=== PATIENT | female | born 1995 | race American Indian/Alaskan Native ===

== ENCOUNTER 2018-01-07 08:57 | Inpatient (IN) | payer OTHER, MEDICAID ==
--- NOTE | 2018-01-06 17:42 | History and Physical Report ---
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 no EDC Calculations LMP: 01/14/2018 EDC Confirmation: 01/14/2018 Past History : 3 Term Births: 1 Premature Births: 0 Living Children: 1 Para: 1 Prev : 1 Aborta: 1 Spont. 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 of genital herpes: yes Partner hx. of genital herpes: no Rash, Viral, or Febrile illness since last LMP? no Varicella/Chicken Pox Status: Immunized Genetic History Congenital Heart Defect: Mom: no Dad: no Alejandra Disease: Mom: no Dad: no Thalassemia Mom: no Dad: no Neural Tube Defect Mom: no Dad: no Down's Syndrome Mom: no Dad: no Clay-Sachs Mom: no Dad: no Sickle Cell Disease/Trait Mom: no Dad: no Hemophilia Mom: no Dad: no Muscular Dystrophy Mom: no Dad: no Cystic Fibrosis Mom: no Dad: no Lb Chorea Mom: no Dad: no Mental Retardation Mom: no Dad: no Fragile X Mom: no Dad: no Other Genetic/Chromosomal Disorder Mom: no Dad: no Child w/other defect Mom: no Dad: no Enviromental Exposures Xray Exposure: no Medication, drug, or alcohol use since LMP: no Chemical/Other Exposure: no Exposure to Cat Liter: no Hx of Parvovirus (Fifth Disease): no Occupational Exposure to Children: none Current Allergies (reviewed today): No known allergies Past History Past Medical History: other (See HPI) Past Surgical History: other (See HPI) 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) Family/Genetic History: other (See HPI) Social history: other (See HPI) - Obstetrical History Expected Date of Delivery: 01/14/18 Actual Gestation: 39 Week(s) 0 Day(s) : 3 Hx # Term Pregnancies: 1 Number of Pregnancies: 0 Spontaneous Abortions: 1 Induced : 0 Number of Living Children: 1 Medications and Allergies Allergies Allergy/AdvReac Type Severity Reaction Status Date / Time No Known Allergies Allergy Verified 01/07/18 09:19 - Physical Exam Breasts: Positive: deferred Cardiovascular: Regular rate Lungs: Positive: Normal air movement Abdomen: Positive: normal appearance, normal bowel sounds Genitourinary (Female): Positive: normal external genitalia Results All other labs normal. Assessment and Plan - Patient Problems (1) Maternal care due to low transverse uterine scar from previous delivery Current Visit: No Status: Acute Plan to address problem: Discuss the risks of the surgery including infection, bleeding possibly heavy enough to require a blood transfusion, possible damage to bowel, bladder or ureter. Her questions were answered. Patient understands and desires to proceed (2) with 39 completed weeks gestation Current Visit: No Status: Acute (3) Herpes, genital Current Visit: No Status: Chronic Qualifiers: Herpes simplex infection site: unspecified Qualified Code(s): A60.00 - Herpesviral infection of urogenital system, unspecified
[~2018-01-07 08:57] MED LIST: ANCEF/STERILE WATER 2 GM/20 ML 2 GM/20 ML SYRINGE IV NR; BICITRA PO SCH; LACTATED RINGERS 1,000 ML IV SCH; PEPCID IV SCH; PITOCin/NS 20 UNIT/1000ML DRIP 20 UNITS/1,000 ML BAG IV SCH; REGLAN IV SCH
[2018-01-07] MEDS ORDERED: ZOFRAN IV PRN (10:38)
[2018-01-07] MEDS ORDERED: PHENERGAN PO PRN (10:38)
[2018-01-07] MEDS ORDERED: NARCAN 0.4 MG/1 ML IV PRN (10:38)
[2018-01-07] MEDS ORDERED: DILAUDID IV PRN (10:38)
[2018-01-07] MEDS ORDERED: PHENERGAN PR PRN ×2 (10:38→19:48)
[2018-01-07] MEDS ORDERED: BENADRYL IV PRN (10:38)
--- NOTE | 2018-01-07 10:38 | Anesthesia Day of Surgery ---
Anesthesia Day of Surgery - Day of Surgery Patient Examined: Yes Patient H&P Reviewed: Yes Patient is NPO: Yes
--- NOTE | 2018-01-07 10:38 | Anesthesia Consultation ---
Anesthesia Consult and Med Hx Date of service: 01/07/18 - Airway Anesthetic Teeth Evaluation: Good ROM Head & Neck: Adequate Mental/Hyoid Distance: Adequate Mallampati Class: Class II Intubation Access Assessment: Probably Good - Pre-Operative Health Status ASA Pre-Surgery Classification: ASA2 Proposed Anesthetic Plan: Epidural, Spinal - Pulmonary Hx Asthma: No - Cardiovascular System Hx Hypertension: No - Central Nervous System Hx Seizures: Yes (x1 as a child) Hx Psychiatric Problems: No - Endocrine Hx Renal Disease: No Hx Hypothyroidism: No Hx Hyperthyroidism: No - Hematic Hx Anemia: No Hx Sickle Cell Disease: No - Other Systems Hx Alcohol Use: No
[2018-01-07] MEDS ORDERED: TORADOL IV PRN (10:39)
[2018-01-07 10:46] LABS: Basophils % (Auto) 0.3 % (0.0-1.8); Eosinophils # (Auto) 0.1 K/mm3 (0.0-0.4); Eosinophils % (Auto) 0.5 % (0.0-4.3); Hematocrit 33.5 % (30.3-42.9); Hemoglobin 11.1 gm/dl (10.1-14.3); Lymphocytes # (Auto) 2.7 K/mm3 (1.2-5.4); Lymphocytes % (Auto) 23.7 % (13.4-35.0); Mean Corpuscular HGB Conc 33 % (30-34); Mean Corpuscular Hemoglobin 29 pg (28-32); Mean Corpuscular Volume 87 fl (79-97); Monocytes # (Auto) 1.1 K/mm3 (0.0-0.8); Monocytes % (Auto) 9.4 % (0.0-7.3); Platelet Count 200 K/mm3 (140-440); Red Blood Count 3.85 M/mm3 (3.65-5.03)
[2018-01-07] MEDS ORDERED: SODIUM CHLORIDE FLUSH SYRINGE 10 ML IV SCH (11:00)
[2018-01-07] MEDS ORDERED: NACL 0.9% IR ONE (11:54)
[2018-01-07] MEDS ORDERED: WATER FOR IRRIG STERILE IR ONE (11:54)
[2018-01-07] MEDS ORDERED: NEO SYNEPHRINE/NS Syringe(OR USE) IV ONE (12:17)
[2018-01-07] MEDS ORDERED: ZOFRAN ONE (12:17)
[2018-01-07] MEDS ORDERED: ASTRAMORPH PF 10MG/10ML ONE (12:21)
--- NOTE | 2018-01-07 12:37 | Operative Report ---
Operative Report Operative Report: Date of procedure: 01/07/2018 Pre-operative diagnosis: Intrauterine at 39 weeks with previous section Post-operative diagnosis: Same Procedure name(s): Repeat low transverse section Surgeon: Pascual Diaz MD Director Stars: Shauna Dominguez CST Anesthesia: Spinal EBL: 600 Complications: None Findings: Normal uterus with thin lower uterine segment normal tubes and ovaries bilaterally. Female infant weight 6 lbs. 12 oz. Apgars 8 at 1 minute and 9 at 5 minutes Specimen(s): None Procedure: The patient was brought to the operating room. A spinal was placed without any complications. She was then placed in left lateral tilt. Prepped and draped in the usual sterile manner. After testing for adequate anesthesia level, a Pfannenstiel incision was made through her previous scar. This incision was taken down to the fascia. The fascia was then nicked in the midline. This incision was extended out laterally with Ramirez scissors. The fascia was then sharply and bluntly from the underlying rectus muscles. The rectus muscles were bluntly and sharply . The peritoneum was then entered with the steam hoist operator's fingers. This incision was spread vertically with care not to damage the bladder below. The bladder flap was then formed sharply and bluntly with Metzenbaum scissors. The Denis self- retaining tractor was then placed without any difficulty. A transverse incision was made in lower uterine segment. This incision was extended laterally with the operators fingers. The amniotic sac was then entered bluntly with the steam hoist operator's fingers. The infant was delivered from the vertex position. Bulb suction on the mother's abdomen. Cord was double clamped and cut. The was then passed to the nursery personnel who were in attendance. The above scores were given by the nursery personnel. The placenta was then bluntly removed. The uterus was then externalized and wiped clean the remaining products. The uterine incision was closed in layers. The first incision was closed in a locking manner using 0 Vicryl. This was followed by imbricating stitch also with 0 Vicryl. This closure was hemostatic. The bladder flap was copiously irrigated and found to be hemostatic. The pelvis was copiously irrigated and found to be hemostatic. The uterus was then placed back to the patient's abdomen. The retractors were removed. The rectus muscles were inspected and found to be hemostatic. The fascia was then closed in a running manner using 0 Vicryl. This incision was hemostatic irrigation Bovie. The skin was reapproximated with 4-0 Vicryl subcuticularly. The patient tolerated procedure well. Her urine was clear. The infant was admitted to the well baby nursery. The patient was accompanied to recovery room in good condition. Instrument count correct 3
[2018-01-07] MEDS ORDERED: LANSINOH TP PRN (12:39)
[2018-01-07] MEDS ORDERED: TUCKS PAD TP PRN (12:39)
[2018-01-07] MEDS ORDERED: MILK OF MAGNESIA PO PRN (12:41)
[2018-01-07] MEDS ORDERED: TYLENOL PO PRN (12:41)
[2018-01-07] MEDS ORDERED: METHERGINE IM ONE (12:58)
[2018-01-07] MEDS ORDERED: ANCEF/NS 1 GM/50 ML 1 GM/50 ML BAG IV SCH (13:00)
[2018-01-07] MEDS ORDERED: PITOCin/NS 20 UNIT/1000ML DRIP 20 UNITS/1,000 ML BAG IV SCH (13:00)
[2018-01-07] MEDS: TORADOL IV SCH ×2 (15:13→21:06)
[2018-01-07] MEDS: METHERGINE PO SCH ×2 (15:31→21:12)
[2018-01-07] MEDS ORDERED: ZOFRAN IV ONE (17:00)
[2018-01-07] MEDS: D5LR 1,000 ML IV SCH ×2 (17:03→23:28)
[2018-01-07] MEDS: ceFAZolin 1 GM in NACL 0.9% 20 ML IV SCH (17:03)
[2018-01-08 01:10] LABS: Hematocrit 31.3 % (30.3-42.9); Hemoglobin 10.1 gm/dl (10.1-14.3)
[2018-01-08] MEDS: ceFAZolin 1 GM in NACL 0.9% 20 ML IV SCH (02:24)
[2018-01-08] MEDS: TORADOL IV SCH (03:51)
[2018-01-08] MEDS: D5LR 1,000 ML IV SCH (05:52)
[2018-01-08] MEDS: METHERGINE PO SCH (05:57)
--- NOTE | 2018-01-08 08:32 | Progress Note ---
Assessment and Plan patient doing well, ambulating up in room caring for . , lochia scant, dressing dry and intact - rn to remove during AM care. VSSAF, H&H 10.1/31.3. Continue postop pathway. - Patient Problems (1) delivery delivered Current Visit: Yes Status: Acute Subjective - Subjective Date of service: 01/08/18 Principal diagnosis: postop day #1 s/p repeat c/s Patient reports: appetite normal, voiding normally, pain well controlled, flatus , ambulating normally, no dizzy ambulation, no nauseated : doing well, nursing well Objective - Vital Signs Latest vital signs: Vital Signs Temp Pulse Resp BP BP Pulse Ox 01/08/18 04:05 98.0 F 63 20 118/63 01/08/18 00:00 97.7 F 65 20 114/65 01/07/18 21:30 98.2 F 68 20 115/67 01/07/18 16:09 98.3 F 66 20 112/61 97 01/07/18 14:21 97.5 F L 77 20 112/78 100 01/07/18 13:38 82 14 127/75 100 01/07/18 13:23 80 16 123/70 100 01/07/18 13:08 80 16 127/75 100 01/07/18 12:53 93 H 11 L 122/73 100 01/07/18 12:48 89 14 127/74 100 01/07/18 12:43 97.5 F L 94 H 12 126/69 100 01/07/18 12:39 97.5 F L 99 H 16 108/66 100 01/07/18 11:06 107 H 100 01/07/18 11:01 106 H 100 01/07/18 10:56 106 H 100 01/07/18 10:51 107 H 100 01/07/18 10:46 105 H 100 01/07/18 10:41 107 H 100 01/07/18 10:36 101 H 100 01/07/18 10:31 98 H 100 01/07/18 10:26 90 100 01/07/18 10:21 99 H 99 01/07/18 10:10 99 H 99 01/07/18 10:05 103 H 98 01/07/18 10:00 101 H 99 01/07/18 09:55 91 H 98 01/07/18 09:50 95 H 98 01/07/18 09:45 87 98 01/07/18 09:40 102 H 99 01/07/18 09:35 104 H 100 01/07/18 09:33 96 H 116/71 01/07/18 09:29 98.7 F 107 H 20 116/71 100 Intake and Output 01/07/18 01/08/18 01/08/18 23:59 07:59 15:59 Intake Total 213.784 5223 Output Total 350 600 Balance 472.083 560 Intake: IV 802.083 800 D5lr 1,000 ml @ 125 mls/ 802.083 800 hr IV DIRECT JUNIOR Rx#: [id number] Oral 360 Intake, Free Water 20 Output: Urine 350 600 Indwelling Catheter 350 600 Other: Total, Intake Amount 120 Total, Output Amount 350 600 # Voids Void 1 - Exam Breasts: Present: normal, Cardiovascular: Present: Regular rate Lungs: Present: Clear to auscultation, Normal air movement Abdomen: Present: normal appearance, soft Vulva: both: normal Uterus: Present: normal, firm, fundal height at umbilicus Extremities: Present: normal Deep Tendon Reflex Grade: Normal +2 Incision: Present: normal, dry, dressed - Labs Labs: Abnormal lab results 01/07/18 Range/Units 10:20 WBC 11.5 H (4.5-11.0) K/mm3 [place] % (Auto) 9.4 H (0.0-7.3) % [place] # 1.1 H (0.0-0.8) K/mm3
[2018-01-08] MEDS: PRENATAL VITAMIN PO SCH (10:15)
[2018-01-08] MEDS: FEOSOL PO SCH (10:15)
[2018-01-08] MEDS: MOTRIN PO PRN (10:15)
[2018-01-08] MEDS: NORCO 5/325 PO PRN ×2 (15:09→20:10)
[2018-01-08] MEDS ORDERED: BOOSTRIX IM ONE (21:01)
[2018-01-09] MEDS: NORCO 5/325 PO PRN ×2 (03:27→08:35)
[2018-01-09] MEDS: MOTRIN PO PRN (03:28)
[2018-01-09 10:30] VITALS: BP 111/76
[2018-01-09] MEDS: FEOSOL PO SCH (10:38)
[2018-01-09] MEDS: PRENATAL VITAMIN PO SCH (10:38)
--- NOTE | 2018-01-09 11:01 | Discharge Summary ---
Providers - Providers Date of Admission: 01/07/18 08:57 Date of discharge: 01/09/18 Attending physician: GERALD QUEZADA 01/07/18 12:41 Consult to Technical Services Rep [CONS] Routine Reason For Exam: Primary care physician: CASPER ELIZONDO Hospitalization Reason for admission: section Delivery: Procedure: section Incision: normal, dry, intact complications: none Discharge diagnosis: IUP at term delivered [place] baby: female Hospital course: Patient was admitted and underwent above procedure without complications. Her post operative course was benign she was afebrile throughout. Patient postoperative day 1 hematocrit was in an acceptable range. Patient had no orthostatic symptoms. Patient was tolerating regular diet and voiding without difficulty at time of discharge. Patient incision was healing well without evidence of infection. Patient desires discharge today Condition at discharge: Good Disposition: DC-01 TO HOME OR SELFCARE - Discharge Diagnoses (1) Maternal care due to low transverse uterine scar from previous delivery Status: Acute (2) with 39 completed weeks gestation Status: Acute (3) Herpes, genital Status: Chronic Qualifiers: Herpes simplex infection site: unspecified Qualified Code(s): A60.00 - Herpesviral infection of urogenital system, unspecified Plan - Discharge Medications Prescriptions: Ferrous Sulfate [Feosol 325 MG tab] 325 mg PO BID #60 tablet Ibuprofen [Motrin 800 MG tab] 800 mg PO Q6H PRN #30 tablet PRN Reason: Pain oxyCODONE /ACETAMINOPHEN [Percocet 5/325 mg] 1 - 2 tab PO Q4H PRN #30 tablet PRN Reason: Pain, Moderate - Provider Discharge Summary Additional instructions: [] Smoking cessation referral if applicable(refer to patient education folder for contact #) [] Refer to [facility] Booklet Call your doctor immediately for: * Fever > 100.5 * Heavy vaginal bleeding ( >1 pad per hour) * Severe persistent headache * Shortness of breath * Reddened, hot, painful area to leg or breast * Drainage or odor from incision. * Keep incision clean and dry at all times and follow doctor's instructions regarding bathing/showering - Follow up plan Follow up: CASPER ELIZONDO MD [Primary Care Provider] - 7 Days
== END 2018-01-09 15:20 | disposition home or self-care (01) | DRG 765 ==
LOC: APU 08:57 → OB 14:57
PROVIDERS: ADMIT Obstetrics & Gynecology; ATTEND Obstetrics & Gynecology
PROC: 10D00Z1 Extraction of Products of Conception, Low, Open Approach (ICD-10-PCS; principal; 2018-01-07)
DX: O34.211 Maternal care for low transverse scar from previous cesarean delivery (principal); O98.32 Other infections with a predominantly sexual mode of transmission complicating childbirth; Z3A.39 39 weeks gestation of pregnancy; Z37.0 Single live birth; A60.00 Herpesviral infection of urogenital system, unspecified
CPT/HCPCS: 36415; 85014; 85018; 85025; 86850; 86900; 86901; 90471; 90715; 99211; A6250; C1765; G0463; J0690; J1885; J2210; J2274; J2370; J2405; J2590; J2765; J7120; J7121